=== PATIENT | male | born 1990 | race Caucasian/White ===

== ENCOUNTER → 2021-09-19 | Outpatient (CLI) | payer BC ==
--- NOTE | 2021-09-19 17:17 | P.SLEEP ---
History of Present Illness DATE: 09/19/2021 CONSULTATION/NEW PATIENT EVALUATION HISTORY OF PRESENT ILLNESS/SLEEP-WAKE EVALUATION: 30 year old gentleman had been evaluated in the sleep center for possible obstructive sleep apnea hypopnea syndrome.Patient had the home sleep apnea test about 1 year ago. Results of the test was borderline. Patient was not able to get CPAP treatment at that time. SLEEP SCHEDULE: Usually sleep schedule on weekday8:30 PM until 5 AM[], during days o 9 PM to 8 AM[]. FALLING ASLEEP:No problems with falling asleep, no TV in bedroom[]. DURING SLEEP Patient snores and wakes up from sleep 3 times with difficulties to reinitiate sleep again. [] No history of hypnogogical hallucinations, sleep paralysis, or cataplexy. DURING THE DAY/WAKE STATE:In the morning patient wake up tired[]. [place] sleepiness scale 1. Usually patient doesn't take naps[].[]. PAST MEDICAL HISTORY: History of seizure episode several months ago[]. PAST SURGICAL HISTORY:Appendectomy[]. MEDICATIONS: Oxcarbazepine[]. SOCIAL HISTORY: Positive for smoking cigars[], alcohol consumption occasional. REVIEW OF SYSTEMSSnoring, multiple awakenings from sleep[]. No fevers. No double vision. No recent chest pain. No shortness of breath. No abdominal pain. No bleeding episodes. No blood in urine. No seizure episodes. PHYSICAL EXAMINATION: GENERAL: A pleasant patient without any distress. VITAL SIGNS: BP 146/87 , HR 84 , RR 16 , weight 254.6ds, height 5 foot[ 11 ]inches, body mass index 35.4 . HEENT: PERRLA, EOMI. Evaluation of oropharynx showed tongue protrudes midline, low position of soft palate Mallampati4. NECK: Supple. No JVD. Thyroid is not palpable. 17inches in circumference. LUNGS: Clear to percussion and to auscultation. Good air exchange. No wheezing or rhonchi. HEART: S1, S2 regular. No murmurs, gallops or rubs. ABDOMEN: Soft and nontender. Bowel sounds are present. No organomegaly appreciated. EXTREMITIES: No clubbing or cyanosis. [employer]ER: Awake, alert, and oriented x3. Cranial nerves 2 to 7 intact. There is no fasciculation or atrophy noted. No focal deficits observed. ASSESSMENT: 1 Snoring, multiple awakenings from sleep with difficulties to reinitiate sleep, extremely low position of soft palate Mallampati 4, wide neck 17 inches in circumference. Obstructive sleep apnea hypopnea syndrome[]. 2 Obesity body mass index 35.4[]. 3history of seizures[]. 4 Hypertension in the office[]. PLAN: 1. Polysomnography for evaluation of patient's breathing during sleep. 2. CPAP/BiPAP titration if sleep study confirms obstructive sleep apnea- hypopnea syndrome. 3. Preferable position during sleep on the side. 4. No driving if patient feels any sleepiness. Patient is aware of civil and criminal liability for unsafe driving. 5. Sleep hygiene with regular sleep time for at least 7.5-8 hours. 6. Watching weight. 7. low sodium diet . Thank you very much for referring this patient for consultation. Sincerely, Ash Bernard MD, PhD, FAASM. Diplomat of [employer], Sleep Medicine Board by [employer] [facility] [place] [facility] Note - Sleep Note Sleep Note: Temperature: Pulse Rate: Respiratory Rate: Blood Pressure: SpO2: Height: Weight: BMI: Neck Circumference:
== END ==
LOC: SLEEP 16:22
PROVIDERS: ATTEND Internal Medicine
DX: G47.33 Obstructive sleep apnea (adult) (pediatric) (principal); E66.9 Obesity, unspecified; Z68.35 Body mass index [BMI] 35.0-35.9, adult; I10 Essential (primary) hypertension; F17.290 Nicotine dependence, other tobacco product, uncomplicated
CPT/HCPCS: 99202